=== PATIENT | female | born 1980 | race Caucasian/White ===

== ENCOUNTER 2020-05-01 15:00 | Inpatient (IN) | payer OTHER ==
[2020-05-01 18:21] VITALS: BMI 23.3
[2020-05-01] MEDS ORDERED: ACETAMINOPHEN 325 MG TABLET (FP) PO PRN ×2 (18:57)
[2020-05-01] MEDS ORDERED: MAGNESIUM CITRATE 300 ML BOTTLE PO PRN (18:57)
[2020-05-01] MEDS ORDERED: chlordiazePOXIDE HCL 25 MG CAPSULE PO PRN (18:57)
[2020-05-01] MEDS ORDERED: BISMUTH SUBSALICYLATE 524 MG/30 ML UD PO PRN (18:57)
[2020-05-01] MEDS ORDERED: NICOTINE POLACRILEX 2 MG GUM BUC PRN (18:57)
[2020-05-01] MEDS ORDERED: MENTHOL/PHENOL 1 EACH UD MM PRN (18:57)
[2020-05-01] MEDS ORDERED: IBUPROFEN 400 MG TABLET (FP) PO PRN (18:57)
[2020-05-01] MEDS ORDERED: MAGNESIUM HYDROX 2400MG/30ML ORAL SUSPENSION 30 ML CUP PO PRN (18:57)
[2020-05-01] MEDS ORDERED: METHOCARBAMOL 500 MG TABLET PO PRN (18:57)
[2020-05-01] MEDS ORDERED: MAG HYDROX/AL HYDROX/SIMETH 30 ML UNIT-DOSE CUP PO PRN (18:57)
[2020-05-01] MEDS ORDERED: ONDANSETRON *ODT* 4 MG TABLET SL PRN (18:57)
[2020-05-01] MEDS: MELATONIN 5 MG TABLETS PO SCH (21:50)
[2020-05-01] MEDS: THIAMINE HCL 100 MG TABLET (FP) PO SCH (21:50)
[2020-05-01] MEDS: hydrOXYzine PAMOATE 25 MG CAPSULE (FP) PO SCH (21:51)
[2020-05-01] MEDS ORDERED: hydrOXYzine PAMOATE 25 MG CAPSULE (FP) PO ONE (21:51)
[2020-05-01] MEDS ORDERED: chlordiazePOXIDE HCL 25 MG CAPSULE ONE (21:51)
[2020-05-01] MEDS: chlordiazePOXIDE HCL 25 MG CAPSULE PO SCH (22:05)
[2020-05-02] MEDS ORDERED: chlordiazePOXIDE HCL 25 MG CAPSULE ONE (05:43)
[2020-05-02] MEDS ORDERED: hydrOXYzine PAMOATE 25 MG CAPSULE (FP) PO ONE (05:44)
[2020-05-02] MEDS: hydrOXYzine PAMOATE 25 MG CAPSULE (FP) PO SCH ×5 (06:05→22:08)
[2020-05-02] MEDS: chlordiazePOXIDE HCL 25 MG CAPSULE PO SCH ×2 (06:05→10:10)
[2020-05-02] MEDS: PRENATAL VITAMINS W/ FOLIC ACID TABLET (FP) PO SCH (10:10)
[2020-05-02 10:32] LABS: POTASSIUM 3.6 mmol/L (3.5-5.1)
[2020-05-02 10:34] LABS: HEMATOCRIT 42.5 % (32.4-45.2); HEMOGLOBIN 14.3 GM/dL (10.7-15.3); MCH 35.4 pg (25.7-33.7); MCHC 33.6 g/dl (32.0-36.0); MEAN CELL VOLUME 105.2 fl (80-96); MEAN PLT VOLUME 7.6 fl (7.5-11.1); PLATELET COUNT 133 K/MM3 (134-434); RBC 4.04 M/mm3 (3.60-5.2); RDW 13.1 % (11.6-15.6); WHITE BLOOD COUNT 4.8 K/mm3 (4.0-10.0)
[2020-05-02 10:37] LABS: CALCIUM 9.8 mg/dL (8.5-10.1)
[2020-05-02 10:38] LABS: ALBUMIN 3.9 g/dl (3.4-5.0); BLOOD UREA NITROGEN 7.4 mg/dL (7-18)
[2020-05-02 10:41] LABS: CREATININE 0.8 mg/dL (0.55-1.3)
[2020-05-02 10:43] LABS: BILIRUBIN,TOTAL 1.2 mg/dL (0.2-1); TOT PROT 7.6 g/dl (6.4-8.2)
[2020-05-02 11:28] LABS: HIV INTERPRETATION NEGATIVE (NEGATIVE)
[2020-05-02] MEDS ORDERED: LORazepam 1 MG TABLET PO PRN (15:42)
[2020-05-02] MEDS: LORazepam 2 MG TABLET PO SCH ×2 (17:29→22:08)
[2020-05-02] MEDS: THIAMINE HCL 100 MG TABLET (FP) PO SCH (22:08)
[2020-05-02] MEDS: MELATONIN 5 MG TABLETS PO SCH (22:08)
[2020-05-03] MEDS ORDERED: chlordiazePOXIDE HCL 25 MG CAPSULE PO SCH (05:00)
[2020-05-03] MEDS: hydrOXYzine PAMOATE 25 MG CAPSULE (FP) PO SCH ×5 (05:29→22:17)
[2020-05-03] MEDS: LORazepam 2 MG TABLET PO SCH ×4 (05:29→22:17)
[2020-05-03] MEDS: PRENATAL VITAMINS W/ FOLIC ACID TABLET (FP) PO SCH (10:49)
[2020-05-03] MEDS: THIAMINE HCL 100 MG TABLET (FP) PO SCH (22:17)
[2020-05-03] MEDS: MELATONIN 5 MG TABLETS PO SCH (22:17)
[2020-05-04] MEDS ORDERED: chlordiazePOXIDE HCL 10 MG CAPSULE PO PRN
[2020-05-04] MEDS ORDERED: chlordiazePOXIDE HCL 10 MG CAPSULE PO SCH (05:00)
[2020-05-04] MEDS: LORazepam 1 MG TABLET PO SCH ×4 (05:26→22:08)
[2020-05-04] MEDS: hydrOXYzine PAMOATE 25 MG CAPSULE (FP) PO SCH ×5 (05:26→22:08)
[2020-05-04] MEDS: PRENATAL VITAMINS W/ FOLIC ACID TABLET (FP) PO SCH (10:04)
[2020-05-04 10:30] LABS: POTASSIUM 3.6 mmol/L (3.5-5.1)
[2020-05-04 10:32] LABS: CALCIUM 9.7 mg/dL (8.5-10.1)
[2020-05-04 10:33] LABS: ALBUMIN 3.7 g/dl (3.4-5.0); BLOOD UREA NITROGEN 6.5 mg/dL (7-18)
[2020-05-04 10:35] LABS: CREATININE 0.7 mg/dL (0.55-1.3)
[2020-05-04 10:37] LABS: BILIRUBIN,TOTAL 0.9 mg/dL (0.2-1)
[2020-05-04] MEDS: THIAMINE HCL 100 MG TABLET (FP) PO SCH (22:08)
[2020-05-04] MEDS: MELATONIN 5 MG TABLETS PO SCH (22:08)
[2020-05-05] MEDS ORDERED: LORazepam 0.5 MG TABLET PO PRN
[2020-05-05] MEDS ORDERED: chlordiazePOXIDE HCL 10 MG CAPSULE PO SCH (05:00)
[2020-05-05] MEDS: hydrOXYzine PAMOATE 25 MG CAPSULE (FP) PO SCH ×5 (05:21→22:00)
[2020-05-05] MEDS: LORazepam 0.5 MG TABLET PO SCH ×4 (05:21→22:00)
[2020-05-05] MEDS: PRENATAL VITAMINS W/ FOLIC ACID TABLET (FP) PO SCH (10:12)
[2020-05-05] MEDS ORDERED: FLU VACCINE (FLULAVAL) PF 60 MCG/0.5 ML SYRINGE 2020-2021 IM ONE (12:00)
[2020-05-05] MEDS: THIAMINE HCL 100 MG TABLET (FP) PO SCH (22:00)
[2020-05-05] MEDS: MELATONIN 5 MG TABLETS PO SCH (22:01)
[2020-05-06] MEDS ORDERED: LORazepam 0.5 MG TABLET PO ONE (05:00)
[2020-05-06] MEDS ORDERED: chlordiazePOXIDE HCL 10 MG CAPSULE PO ONE (05:00)
[2020-05-06] MEDS: hydrOXYzine PAMOATE 25 MG CAPSULE (FP) PO SCH ×2 (05:11→09:14)
[2020-05-06 08:55] VITALS: BP 117/68; PULSE 73; TEMP 96.1
[2020-05-06] MEDS: PRENATAL VITAMINS W/ FOLIC ACID TABLET (FP) PO SCH (09:12)
== END 2020-05-06 09:25 | disposition home or self-care (01) | DRG 775 ==
LOC: YASAS 15:00 → Y3N 05-02 08:42
PROVIDERS: ADMIT Allergy & Immunology; ATTEND Allergy & Immunology
PROC: HZ2ZZZZ Detoxification Services for Substance Abuse Treatment (ICD-10-PCS; principal; 2020-05-02)
DX: F10.230 Alcohol dependence with withdrawal, uncomplicated (principal); R74.01 Elevation of levels of liver transaminase levels; E86.0 Dehydration; Z88.0 Allergy status to penicillin; Z86.69 Personal history of other diseases of the nervous system and sense organs
CPT/HCPCS: 36415; 80053; 85027; 86780; 87389; 93005; 93010; C9803; U0003